=== PATIENT | male | born 1985 | race Caucasian/White ===

== ENCOUNTER 2023-08-12 15:25 | Emergency (ER) | payer OTHER ==
[~2023-08-12] VITALS: Ht 182.9 cm; Wt 127.0 kg
[2023-08-12 15:34] VITALS: BP 151/103
[2023-08-12] MEDS ORDERED: Ketorolac Tromethamine 30mg Vial IM ONE (16:10)
[2023-08-12] MEDS ORDERED: CYCL10 PO (16:13)
[2023-08-12] MEDS ORDERED: NAPROXEN PO (16:13)
== END 2023-08-12 16:37 | disposition home or self-care (01) ==
LOC: ER 15:25
DX: M54.41 Lumbago with sciatica, right side (principal); R25.2 Cramp and spasm
CPT/HCPCS: 96372; 99283-25; J1885

== ENCOUNTER 2024-04-19 15:47 | Emergency (ER) | payer SELFPAY ==
[~2024-04-19] VITALS: Ht 182.9 cm; Wt 118.8 kg
[~2024-04-19 15:47] MED LIST: CYCL10 PO; NAPROXEN PO
[2024-04-19 16:33] VITALS: BP 144/108
[2024-04-19 16:40] LABS: BASOPHILS ABSOLUTE AUTO 0.08 K/mm3 (0.00-0.23); BASOPHILS PERCENT AUTO 1 % (0-2); EOSINOPHILS ABSOLUTE AUTO 0.16 K/mm3 (0.00-0.68); EOSINOPHILS PERCENT AUTO 2 % (0-6); Hematocrit 42.8 % (37.0-53.0); Hemoglobin 15.1 g/dL (13.5-17.5); IMMATURE GRAN ABSOLUTE AUTO 0.03 K/mm3 (0.00-0.10); IMMATURE GRAN PERCENT AUTO 0 % (0-1); LYMPHOCYTES ABSOLUTE AUTO 2.22 K/mm3 (0.84-5.20); LYMPHOCYTES PERCENT AUTO 23 % (21-46); MONOCYTES ABSOLUTE AUTO 0.89 K/mm3 (0.16-1.47); MONOCYTES PERCENT AUTO 9 % (4-13); Mean Corpuscular HGB 31.2 pg (26.0-34.0); Mean Corpuscular HGB Conc 35.3 g/dL (31.5-36.5); Mean Corpuscular Volume 88 fL (80-100); Mean Platelet Volume 9.6 fL (9.1-12.4); NEUTROPHILS ABSOLUTE AUTO 6.44 K/mm3 (1.96-9.15); NEUTROPHILS PERCENT AUTO 66 % (41-73); Platelet Count 312 K/mm3 (150-400); RDW Coefficient Variation 11.6 % (11.7-14.2); RDW Standard Deviation 37.7 fL (35.1-46.3); Red Blood Cell Count 4.84 M/mm3 (4.30-5.90); White Blood Cell Count 9.82 K/mm3 (4.00-11.30)
[2024-04-19 16:54] LABS: Albumin/Globulin Ratio 1.1 (0.8-1.8); Bilirubin, Total 0.3 mg/dL (0.1-1.0); Bun/Creatinine Ratio 14.2 (12.0-20.0); Calcium, Blood 8.9 mg/dL (8.5-10.1); Creatinine, Blood 0.91 mg/dL (0.60-1.20); Globulin, Blood 3.8 g/dL (2.2-4.0); Potassium, Blood 4.1 mmol/L (3.5-5.5); Total Protein, Blood 7.8 g/dL (6.4-8.2)
[2024-04-19] MEDS ORDERED: ACET500 PO (21:25)
== END 2024-04-19 21:31 | disposition home or self-care (01) ==
LOC: ER 15:47
PROVIDERS: Physician Assistant
DX: R07.89 Other chest pain (principal); R03.0 Elevated blood-pressure reading, without diagnosis of hypertension
CPT/HCPCS: 71046; 80053; 84484; 85025; 93005; 93010; 99285-25

== ENCOUNTER 2024-05-07 10:10 | Emergency (ER) | payer SELFPAY ==
[~2024-05-07] VITALS: Ht 177.8 cm; Wt 97.5 kg
[~2024-05-07 10:10] MED LIST changes: +ACET500 PO
[2024-05-07 10:20] VITALS: BP 174/97
[2024-05-07] MEDS ORDERED: AMOCLA875 PO (12:47)
== END 2024-05-07 13:18 | disposition home or self-care (01) ==
LOC: ER 10:10
DX: K08.89 Other specified disorders of teeth and supporting structures (principal)
CPT/HCPCS: 64400; 99282-25